=== PATIENT | male | born 2000 | race African-American/Black ===

== ENCOUNTER 2023-02-23 15:43 | Emergency (ER) | payer MEDICAID ==
[~2023-02-23] VITALS: Ht 167.6 cm; Wt 79.0 kg
[2023-02-23 16:13] VITALS: BP 131/73; PULSE 67; RESP 16; TEMP 98.5; O2SAT 99
[2023-02-23] MEDS ORDERED: IBUP-2030 MT (16:48)
[2023-02-23] MEDS ORDERED: CYCL5TAB MT (16:48)
== END 2023-02-23 18:20 | disposition home or self-care (01) ==
LOC: ER 15:43
DX: R51.9 Headache, unspecified (principal); V49.49XA Driver injured in collision with other motor vehicles in traffic accident, initial encounter; Y93.89 Activity, other specified; Y92.89 Other specified places as the place of occurrence of the external cause; Y99.8 Other external cause status
CPT/HCPCS: 99281